=== PATIENT | female | born 2000 | race African-American/Black ===

== ENCOUNTER 2023-10-03 10:37 | Emergency (ER) | payer SELFPAY ==
[~2023-10-03] VITALS: Ht 157.5 cm; Wt 59.1 kg
[2023-10-03 10:45] VITALS: TEMP 99.4
[2023-10-05 12:40] VITALS: BP 97/59; PULSE 87
== END 2023-10-03 12:40 | disposition home or self-care (01) ==
LOC: COL.ER 10:37
DX: M62.838 Other muscle spasm (principal)